=== PATIENT | female | born 1960 | race Caucasian/White ===

== ENCOUNTER 2017-07-10 09:42 | Emergency (ER) | payer OTHER ==
[2017-07-10] MEDS ORDERED: Ketorolac INJ* 30 MG/ML 1 ML VIAL IV ONE (10:43)
[2017-07-10] MEDS ORDERED: diPHENhydraMINE IV* 50 MG/ML 1 ml VIAL (BENADRYL) IV ONE (10:44)
[2017-07-10] MEDS ORDERED: PROCHLORPERAZINE INJ 5 MG/ML 2 ML VIAL IV ONE (10:44)
[2017-07-10] MEDS ORDERED: NS 0.9% 1000 ML* 1,000 ML IV ONE (10:45)
[2017-07-10 11:00] LABS: ABS Basophils 0 10^3/ul (0-0.2); ABS Eosinophils 0 10^3/ul (0-0.6); ABS Monocytes 0.2 10^3/ul (0-0.8); ABS Neutrophils 6.8 10^3/ul (1.5-7.7); ABS Nucleated RBC 0 10^3/ul; Eosinophil % 0.2 % (0-6); Hematocrit 38 % (35-47); Hemoglobin 12.9 g/dl (12.0-16.0); Lymphocyte % 12.9 % (25-47); Mean Corpuscular HGB Conc 34 g/dl (31-36); Mean Corpuscular Hemoglobin 30 pg (27-31); Mean Corpuscular Volume 89 fL (80-97); Mean Platelet Volume 8 um3 (7.4-10.4); Nucleated Red Blood Cells % 0; Platelet Count 237 10^3/ul (150-450); Red Blood Count 4.29 10^6/ul (4.0-5.4); Red Cell Distribution Width 14 % (10.5-15); White Blood Count 8.1 10^3/ul (3.5-10.8)
--- NOTE | 2017-07-10 11:18 | ED ---
Headache - HPI Summary HPI Summary: Patient is an otherwise healthy 56-year-old female presenting to the ED with chief complaint of headache, nausea, vomiting and substernal chest pain which began this morning. She states she has been prepping for a colonoscopy overnight and feels this may have triggered her migraine. History of migraines associated with nausea and vomiting. Pain to the chest began immediately following vomiting and is worse immediately before, what she describes as a pressure. The pain is nonradiating. Headache is 7 out of 10, constant and is similar to her previous episodes of migraines. Denies Orosz. Sensitivity to light, sound and especially smells. Symptoms are aggravated by nothing and relieved with nothing. Due to prepping for a colonoscopy, patient has not eaten or drank anything other than her required fluids 12 hours. - History Of Current Complaint Chief Complaint: EDHeadache Stated Complaint: CHEST PRESSURE,HEADACHE,VOMITING Time Seen by Provider: 07/10/17 10:18 Hx Obtained From: Patient Onset/Duration: Started hours ago Initially Headache Was: Initial Pain Scale(0-10)= - 8 Currently Pain Is: Current Pain Scale(0-10)= - 8 Timing: Constant Character: Throbbing Location of Headache: Parietal - Right side Aggravating Factor: Bright Lights Allevating Factors: Nothing - Risk Factors SAH Risk Factors: Negative Meningitis Risk Factors: Negative SDH Risk Factors: Negative Temporal Arteritis Risk Factors: Female, - Allergies/Home Medications Allergies/Adverse Reactions: Allergies Allergy/AdvReac Type Severity Reaction Status Date / Time No Known Allergies Allergy Verified 09/09/13 14:58 PMH/Surg Hx/FS Hx/Imm Hx Previously Healthy: Yes Cardiovascular History: Denies: Hx Pacemaker/ICD Sensory History: Denies: Hx Hearing Aid Psychiatric History: Denies: Hx Panic Disorder - Cancer History Hx Chemotherapy: No Hx Radiation Therapy: No - Surgical History Surgery Procedure, Year, and Place: SINUSES 2012; TONSILECTOMY - Immunization History Hx Pertussis Vaccination: No Immunizations Up to Date: Yes Infectious Disease History: No Infectious Disease History: Denies: Traveled Outside the [place] in Last 30 Days - Social History Occupation: Employed Full-time Lives: With Family Alcohol Use: Occasionally Hx Substance Use: No Substance Use Type: Reports: None Hx Tobacco Use: No Smoking Status (MU): Never Smoked Tobacco Review of Systems Constitutional: Negative Negative: Fever, Chills, Fatigue, Skin Diaphoresis Eyes: Negative Cardiovascular: Negative Respiratory: Negative Positive: Vomiting, Nausea Genitourinary: Negative Positive: no symptoms reported, see HPI Musculoskeletal: Negative Positive: Headache All Other Systems Reviewed And Are Negative: Yes Physical Exam Triage Information Reviewed: Yes Vital Signs On Initial Exam: Initial Vitals Temp Pulse Resp BP Pulse Ox 97.8 F 82 18 118/64 99 07/10/17 09:45 07/10/17 09:45 07/10/17 09:45 07/10/17 09:45 07/10/17 09:45 Vital Signs Reviewed: Yes Appearance: Positive: Well-Appearing, No Pain Distress, Well-Nourished Skin: Positive: Warm, Skin Color Reflects Adequate Perfusion Head/Face: Positive: Normal Head/Face Inspection. Negative: Temporal Artery Tenderness, TMJ Tenderness, Scalp, Cephalohematoma Eyes: Positive: EOMI, SANTI, Conjunctiva Clear Neck: Positive: Supple, No Lymphadenopathy. Negative: Nuchal Rigidity, Tenderness @, Enlarged Nodes @ Respiratory/Lung Sounds: Positive: Clear to Auscultation, Breath Sounds Present Cardiovascular: Positive: RRR, Pulses are Symmetrical in both Upper and Lower Extremities Abdomen Description: Positive: Nontender, Other: - Tenderness to deep palpation to the epigastric region Musculoskeletal: Positive: Normal, Strength/ROM Intact Neurological: Positive: Sensory/Motor Intact, Alert, Oriented to Person Place, Time Diagnostics - Vital Signs Vital Signs Temp Pulse Resp BP Pulse Ox 07/10/17 09:45 97.8 F 82 18 118/64 99 - Laboratory Lab Results: Lab Results 07/10/17 Range/Units 10:45 WBC 8.1 (3.5-10.8) 10^3/ul RBC 4.29 (4.0-5.4) 10^6/ul Hgb 12.9 (12.0-16.0) g/dl Hct 38 (35-47) % MCV 89 (80-97) fL MCH 30 (27-31) pg MCHC 34 (31-36) g/dl RDW 14 (10.5-15) % Plt Count 237 (150-450) 10^3/ul MPV 8 (7.4-10.4) um3 Neut % (Auto) 83.9 H (38-83) % Lymph % (Auto) 12.9 L (25-47) % Heard % (Auto) 2.7 (0-7) % Eos % (Auto) 0.2 (0-6) % Baso % (Auto) 0.3 (0-2) % Absolute Neuts (auto) 6.8 (1.5-7.7) 10^3/ul Absolute Lymphs (auto) 1.0 (1.0-4.8) 10^3/ul Absolute Monos (auto) 0.2 (0-0.8) 10^3/ul Absolute Eos (auto) 0 (0-0.6) 10^3/ul Absolute Basos (auto) 0 (0-0.2) 10^3/ul Absolute Nucleated RBC 0 10^3/ul Nucleated RBC % 0 ESR Pending Result Diagrams: 07/10/17 10:45 07/10/17 10:45 Lab Statement: Any lab studies that have been ordered have been reviewed, and results considered in the medical decision making process. Headache Course/Dx - Course Course Of Treatment: During the course of treatment, the patient is evaluated for migraine headache, nausea, vomiting since this morning. She is currently prepping for a colonoscopy and feels this may have triggered her migraine. History of migraines. Patient is given Compazine, Benadryl, Toradol and IV fluids. She is Nothing by mouth during the course of treatment as she prefers to try to complete her colonoscopy this afternoon if she begins to feel improved. Labs obtained which are within normal limits including CRP and ESR. This appears to be a migraine resulted from her prep of the colonoscopy with dehydration and not eating 12 hours. While she noted chest pain on arrival, the pain she is describing is epigastric and is associated with nausea/ vomiting. Denies any cardiac history. Troponin obtained and is normal at 0.00. Do not believe this is temporal arteritis, due to normal ESR. She states she is okay for discharge at this time and she feels improved. She is given a prescription for Zofran. Encouraged to drink plenty of fluids. - Diagnoses Provider Diagnoses: Migraine Discharge - Discharge Plan Condition: Stable Disposition: HOME Prescriptions: Ondansetron ODT TAB* [Zofran 4 MG Odt TAB*] 4 mg PO Q6H PRN #12 tab.odt MDD 4 PRN Reason: Nausea Patient Education Materials: Migraine Headache (ED) Referrals: Dae Dukes MD [Primary Care Provider] - Additional Instructions: Continue to drink plenty of fluids Ibuprofen or Tylenol, please use intermittently for any headaches Rest Eat small amounts at a time
[2017-07-10 13:10] VITALS: BP 104/69
== END 2017-07-10 13:08 | disposition home or self-care (01) ==
LOC: ED 09:42
DX: G43.909 Migraine, unspecified, not intractable, without status migrainosus (principal); R11.2 Nausea with vomiting, unspecified
CPT/HCPCS: 36415; 80053; 83605; 84484; 85025; 85652; 93005; 96374; 96375; 99282; J0780; J1200; J1885